=== PATIENT | male | born 1945 | race Two or more races ===

== ENCOUNTER 2019-11-19 18:25 | Inpatient (IN) | payer MEDICARE ==
[~2019-11-19] VITALS: Ht 177.8 cm; Wt 69.9 kg
[2019-11-19 21:26] VITALS: BP 116/62
--- NOTE | 2019-11-19 21:26 | NUR ---
RN OPEN NOTES RECEIVED PATIENT VIA GURNEY FROM [place]/ SPOKE TO [facility] FOR REPORT. PATIENT WAS ORIENTED TO ROOM. A/O X4. ON RA, NO SOB/ ACUTE RESPIRATORY DISTRESS NOTED. VITAL SIGNS: BP 121/75, HR 46, RESPIRATIONS 18, TEMP 97.6 O2 SATURATION 100% ON RA. BED IS IN LOWEST LOCKED POSITION WITH SIDE RAILS UP X3, SEMI FOWLERS. CALL LIGHT IS WITHIN REACH. WILL CONTINUE TO MONITOR.
[2019-11-19] MEDS ORDERED: IV NS 0.9% 1,000 ML IV PRN (22:18)
[2019-11-19] MEDS ORDERED: HYDROCODONE/APAP 5/325MG 1 EACH TABLET PO PRN (22:30)
[2019-11-19] MEDS ORDERED: MAG HYDROX/AL HYDROX/SIMETH 30 ML UDC PO PRN (22:30)
[2019-11-19] MEDS ORDERED: ACETAMINOPHEN 325 MG TABLET PO PRN (22:30)
[2019-11-19] MEDS ORDERED: MAGNESIUM HYDROXIDE 30 ML UDC PO PRN (22:30)
[2019-11-19] MEDS ORDERED: Z GUARD REMEDY 2 OZ OINT TP PRN (22:30)
[2019-11-19] MEDS ORDERED: ONDANSETRON HCL/PF 4 MG/2 ML VIAL IVP PRN (22:30)
[2019-11-19 22:57] LABS: BASOPHILS # (AUTO) 0.2 /CMM (0.0-0.2); BASOPHILS % (AUTO) 1.6 % (0.0-2.0); EOSINOPHILS % (AUTO) 2.3 % (0.0-6.0); HEMATOCRIT 37 % (39-51); HEMOGLOBIN 12.1 g/dL (13.5-17.5); LYMPHOCYTES # (AUTO) 1.4 /CMM (0.8-4.8); MEAN CORPUSCULAR HGB CONC 33 g/dl (31.0-36.0); MEAN CORPUSCULAR VOLUME 95 fL (80-96); MONOCYTES # (AUTO) 0.9 /CMM (0.1-1.30); MONOCYTES % (AUTO) 8.3 % (2.0-12.0); NEUTROPHILS # (AUTO) 8.7 /CMM (1.8-8.9); NEUTROPHILS % (AUTO) 75.8 % (43.0-81.0); PLATELET COUNT (AUTO) 133 /CMM (150-450); RED BLOOD CELL COUNT(AUTO) 3.91 MIL/uL (4.5-6.0); WHITE BLOOD COUNT (AUTO) 11.5 K/uL (4.3-11.0)
[2019-11-19 23:09] LABS: ALANINE AMINOTRANSFERASE 16 U/L (12-78); ALKALINE PHOSPHATASE 107 U/L (46-116); ASPARTATE AMINOTRANSFERASE 25 U/L (15-37); BILIRUBIN,DIRECT 0.2 mg/dL (0.0-0.2); BILIRUBIN,TOTAL 0.6 mg/dL (0.2-1.0); CALCIUM, SERUM 10.1 mg/dL (8.5-10.1); CARBON DIOXIDE 21 mmol/L (21-32); CHLORIDE 98 mmol/L (98-107); CREATININE 2.2 mg/dL (0.6-1.3); GLUCOSE 86 mg/dL (74-106); MAGNESIUM 2.2 mg/dL (1.8-2.4); PHOSPHORUS 4.1 mg/dL (2.5-4.9); POTASSIUM 4.6 mmol/L (3.5-5.1); SODIUM SERUM 128 mmol/L (136-145); UREA NITROGEN, BLOOD 70 mg/dL (7-18)
[2019-11-19 23:17] LABS: THYROID STIMULATING HORMONE 0.419 uIU/mL (0.358-3.74)
[2019-11-20] MEDS ORDERED: LOPERAMIDE HCL (2 MG CAP) 2 MG CAPSULE PO PRN
[2019-11-20] MEDS: IV NS 0.9% 1,000 ML IV SCH ×3 (00:39→20:26)
[2019-11-20] MEDS ORDERED: TOPI25TA49 PO (01:30)
[2019-11-20] MEDS ORDERED: OXYC5CAP18 PO (01:30)
--- NOTE | 2019-11-20 06:20 | NUR ---
RN CLOSE NOTES PATIENT IS LAYING IN BED. A/O X4. ON RA, SATURATING AT 100%, NO SOB/ ACUTE RESPIRATORY DISTRESS NOTED. COLOSTOMY INTACT 100ML OUTPUT. IV ON R AC #20G IS PATENT, RUNNING NS@ 100MLS/ HR. BED IS IN LOWEST LOCKED POSITION WITH SIDE RAILS UP X3, SEMI FOWLERS. CALL LIGHT IS WITHIN REACH. WILL ENDORSE TO AM NURSE.
[2019-11-20 07:13] LABS: BASOPHILS # (AUTO) 0.1 /CMM (0.0-0.2); BASOPHILS % (AUTO) 0.6 % (0.0-2.0); EOSINOPHILS % (AUTO) 2.7 % (0.0-6.0); HEMATOCRIT 33 % (39-51); HEMOGLOBIN 11.2 g/dL (13.5-17.5); LYMPHOCYTES # (AUTO) 1.9 /CMM (0.8-4.8); LYMPHOCYTES % (AUTO) 19.7 % (20.0-44.0); MEAN CORPUSCULAR HGB CONC 34 g/dl (31.0-36.0); MEAN CORPUSCULAR VOLUME 94 fL (80-96); MONOCYTES # (AUTO) 1.2 /CMM (0.1-1.30); MONOCYTES % (AUTO) 12.3 % (2.0-12.0); NEUTROPHILS # (AUTO) 6.1 /CMM (1.8-8.9); NEUTROPHILS % (AUTO) 64.7 % (43.0-81.0); PLATELET COUNT (AUTO) 131 /CMM (150-450); RED BLOOD CELL COUNT(AUTO) 3.54 MIL/uL (4.5-6.0); WHITE BLOOD COUNT (AUTO) 9.5 K/uL (4.3-11.0)
[2019-11-20 07:20] LABS: CALCIUM, SERUM 8.9 mg/dL (8.5-10.1); CARBON DIOXIDE 22 mmol/L (21-32); CHLORIDE 102 mmol/L (98-107); CREATININE 1.7 mg/dL (0.6-1.3); GLUCOSE 123 mg/dL (74-106); MAGNESIUM 2.1 mg/dL (1.8-2.4); PHOSPHORUS 3.1 mg/dL (2.5-4.9); POTASSIUM 3.8 mmol/L (3.5-5.1); SODIUM SERUM 132 mmol/L (136-145); UREA NITROGEN, BLOOD 65 mg/dL (7-18)
[2019-11-20 08:00] VITALS: BP 110/70
--- NOTE | 2019-11-20 08:07 | NUR ---
RN Opening Notes Patient is resting in bed semi fowlers with bed settings low and side rails up. IV RAC is intact. Breathing with no signs distress in room air. Call light is within reach.Continue to monitor.
--- NOTE | 2019-11-20 13:10 | NUR ---
RN MS Notes Patient is A/O x 4. Resting in bed c/o neck and lower abdomen pain 7/10 pain scale gave [place] 5mg. Reassess pain decrease to 3/10 pain scale and tolerated medication well. Vital signs WNL. Bed in low settings with side rails up for safety. Call light is within reach. Continue to monitor.
[2019-11-20 13:11] LABS: APPEARANCE,URINE CLEAR (CLEAR); BILIRUBIN,URINE NEGATIVE (NEGATIVE); BLOOD, URINE NEGATIVE Ery/uL (NEGATIVE); COLOR,URINE YELLOW (YELLOW); KETONES,URINE NEGATIVE (NEGATIVE); LEUKOCYTE ESTERASE ,URINE NEGATIVE (NEGATIVE); NITRITE, URINE NEGATIVE (NEGATIVE); PROTEIN,URINE NEGATIVE (NEGATIVE); UGLUCOSE NEGATIVE (NEGATIVE); UROBILINOGEN,URINE 0.2 EU/dL (0.2)
[2019-11-20 13:18] LABS: CREATININE, URINE 122.5 MG/DL (30.0-125.0); URINE TOTAL PROTEIN 49.2 mg/dL (0-11.9)
[2019-11-20 14:34] LABS: EOSINOPHIL,URINE None Seen
[2019-11-20 16:00] VITALS: BP 131/75
[2019-11-20] MEDS: oxyCODONE IR immediate release 5 MG PO PRN ×2 (16:35→22:59)
--- NOTE | 2019-11-20 16:42 | NUR ---
RN MS NOTES PT SEEN AND EXAMINED BY DR. SHAIKH, NEW ORDERS GIVEN, NOTED AND CARRIED OUT, PAIN MEDS GIVEN ORDERED.
[2019-11-20] MEDS ORDERED: FENTANYL TD PATCH (12 MCG/HR) 12 MCG/HR PATCH.TD72 TD SCH (17:00)
--- NOTE | 2019-11-20 18:16 | NUR ---
RN Closing Notes Patient is A/O x 4. Resting in bed with no signs of SOB in room air. Vitals are WNL c/o pain on the head, neck and abdomen. Pain medication was given and tolerated well. Stoma bag was emptied out 200ML colostomy intact. IV RAC #20G is patent. Bed is in low settings with side rails up for safety and call light is within reach. Will endorse to PM nurse.
--- NOTE | 2019-11-20 19:32 | NUR ---
MS RN NOTES PATIENT RECEIVED IN BED RESTING COMFORTABLY, ALERT AND ORIENTED X4, MALAGASY SPEAKING. PATIENT ON ROOM AIR WITH NO RESPIRATORY DISTRESS AT THIS TIME, WITH EVEN NON-LABORED BREATHING, AND NO SOB NOTED. SKIN WARM AND DRY TO TOUCH. COLOSTOMY BAG IN PLACE, WITH NO LEAKAGE AT THIS TIME. IV ACCESS INTACT AND PATENT ON RIGHT AC 20 GAUGE, IV FLUIDS INFUSING AT 100ml/hr. PROVIDED COMFORT MEASURES TO PATIENT. SAFETY PRECAUTIONS IMPLEMENTED WITH BED LOCKED, BED ALARM ON, BED IN THE LOWEST POSITION, BILATERAL SIDE RAILS UP, BED ALARM ON AND CALL LIGHT WITHIN EASY REACH OF THE PATIENT. WILL CONTINUE TO MONITOR PATIENT.
[2019-11-20 20:00] VITALS: BP 119/73
[2019-11-20 22:59] VITALS: BP 127/75
--- NOTE | 2019-11-20 22:59 | NUR ---
MS RN NOTES PATIENT COMPLAINING OF 10/10 GENERALIZED PAIN, PATIENT VERY IRRITABLE AND DEMANDING PAIN MEDICATION. PROVIDED COMFORT MEASURES TO PATIENT. ADMINISTERED PRN OXY IR 10mg PO ORDERED. VITAL SIGNS BLOOD PRESSURE 127/75 HEART RATE 53 SPO2 100% RESPIRATORY RATE 18. WILL CONTINUE TO MONITOR PATIENT.
[2019-11-21] MEDS: oxyCODONE IR immediate release 5 MG PO PRN ×4 (05:24→23:59)
--- NOTE | 2019-11-21 05:24 | NUR ---
MS RN NOTES PATIENT COMPLAINING OF 10/10 GENERALIZED PAIN, PATIENT IRRITABLE STATING HIS PAIN IS TOO MUCH AND DEMANDING PAIN MEDICATION. PROVIDED COMFORT MEASURES TO PATIENT. ADMINISTERED PRN OXY IR 10mg PO ORDERED. VITAL SIGNS BLOOD PRESSURE 140/77 HEART RATE 50 SPO2 100% RESPIRATORY RATE 20. WILL CONTINUE TO MONITOR PATIENT.
[2019-11-21] MEDS: IV NS 0.9% 1,000 ML IV SCH ×2 (05:49→16:31)
[2019-11-21 06:33] LABS: BASOPHILS # (AUTO) 0.1 /CMM (0.0-0.2); BASOPHILS % (AUTO) 0.6 % (0.0-2.0); EOSINOPHILS % (AUTO) 1.4 % (0.0-6.0); HEMATOCRIT 35 % (39-51); HEMOGLOBIN 11.6 g/dL (13.5-17.5); LYMPHOCYTES # (AUTO) 1.5 /CMM (0.8-4.8); LYMPHOCYTES % (AUTO) 12.7 % (20.0-44.0); MEAN CORPUSCULAR HGB CONC 33 g/dl (31.0-36.0); MEAN CORPUSCULAR VOLUME 94 fL (80-96); MONOCYTES # (AUTO) 1.2 /CMM (0.1-1.30); MONOCYTES % (AUTO) 10.5 % (2.0-12.0); NEUTROPHILS # (AUTO) 8.7 /CMM (1.8-8.9); NEUTROPHILS % (AUTO) 74.8 % (43.0-81.0); PLATELET COUNT (AUTO) 131 /CMM (150-450); RED BLOOD CELL COUNT(AUTO) 3.68 MIL/uL (4.5-6.0); WHITE BLOOD COUNT (AUTO) 11.6 K/uL (4.3-11.0)
--- NOTE | 2019-11-21 06:43 | NUR ---
MS RN NOTES PATIENT AWAKE IN BED AND WATCHING TV. ON ROOM AIR WITH NO SIGNS OF RESPIRATORY DISTRESS WITH EVEN NON-LABORED BREATHING. PATIENT SKIN KEPT WARM AND DRY. IV ACCESS INTACT AND PATENT ON RIGHT AC, INFUSING NORMAL SALINE AT 100ml/hr. PATIENT COLOSTOMY BAG CHANGED, NO DRAINAGE OR LEAKAGE PRESENT. PROVIDED COMFORT MEASURE PATIENT, PATIENT STILL COMPLAINING OF PAIN AFTER ADMINISTERING PRN MEDICATION. SAFETY PRECAUTIONS IMPLEMENTED WITH BED LOCKED, BED ALARM ON, BILATERAL SIDE RAILS UP, AND CALL LIGHT WITHIN EASY REACH OF THE PATIENT. WILL ENDORSE PLAN OF CARE TO UPCOMING DAYSHIFT NURSE.
[2019-11-21 08:00] VITALS: BP 137/76
--- NOTE | 2019-11-21 08:13 | NUR ---
MS RN Opening Notes Patient is resting in bed ate breakfast with no signs of distress. IV RAC #20G intact and patent running 0.9% NS @100ml/hr. Patient goal is to decrease pain and comfort measures will be provided. Bed is in low settings, bed alarm on with side rails up for safety. Call light is within reach. Continue to monitor.
[2019-11-21 08:31] LABS: CREATININE 1.1 mg/dL (0.6-1.3); POTASSIUM 3.8 mmol/L (3.5-5.1)
[2019-11-21 08:32] LABS: THYROID STIMULATING HORMONE 0.171 uIU/mL (0.358-3.74); URIC ACID 6.4 mg/dL (2.6-7.2)
[2019-11-21] MEDS: GABAPENTIN 100 MG CAPSULE PO SCH ×3 (09:01→16:36)
--- NOTE | 2019-11-21 09:01 | NUR ---
RN MS NOTES PT SEEN AND EXAMINED BY DR. SHAIKH, NEW ORDERS GIVEN, NOTED AND CARRIED OUT.
--- NOTE | 2019-11-21 09:50 | NUR ---
MS RN Note Patient was seen by Dr. Cardoza, plan of care discuss with patient verbalize understanding.
--- NOTE | 2019-11-21 12:31 | NUR ---
MS RN Notes Patient got clean linen and changed ostomy bag. Patient c/o pain, pain medication was given and scheduled medication was given. Continue to monitor.
[2019-11-21 16:00] VITALS: BP 135/80
--- NOTE | 2019-11-21 18:24 | NUR ---
MS RN Closing Notes Patient is resting in bed. Showing no signs of distress and no shortnedd of breath in room air. Patient ostomy bag was replaced. IV RAC is intact and patent infusing 0.9% Normal Saline at 100ml/hr. Scheduled medications were given. Complained of pain gave pain medication as needed. Bed is in low settings with side rails up for safety call light is within reach. Will endorse the plan of care to the life consultant nurse.
--- NOTE | 2019-11-21 19:30 | NUR ---
MSRN FULLY AWAKE, V/S STABLE. REQUESTED SNACKS PROVIDED. COLOSTOMY INTACT, VERBALIZES DISCOMFORTS ON HIS SCROTAL, SKIN APPEARS DRY, MOISTURIZER APPLIED, FELT BETTER. PAIN MGT REVIEWED WITH PATIENT, WAS ALREADY SEEN BY PAIN MGT MD. INFORMED HAS NEW MED TO TAKE TONIGHT. ALL NEEDS MADE TO CONTINUE
[2019-11-21 20:48] VITALS: BP 127/73
[2019-11-21] MEDS ORDERED: DESIPRAMINE HCL 10 MG TABLET PO SCH (22:00)
--- NOTE | 2019-11-21 22:05 | NUR ---
MSRN DUE MED FOR NERVE PAIN DECLINED, STATED AFRAID WILL AFFECT HIS APPETITE. WOULD LIKE TO SPEAK TO MD REGARDING NEW MED. SSTATED HE HAD SURGERIES IN THE PASS AND HAS OWN SET OF PAIN MEDS. MED HELD FOR NOW PT REQUESTED. WANTED OXY TO BE GIVEN EARLY, REMINDED TIME FRAME. STATED WOULD RATHER WAIT FOR NEXT VALENZUELA OF OXY RATHER THAN TAKING NEW NERVE PAIN MED. HAS MULTIPLE NEEDS, KEPT COMFORTABLE.
--- NOTE | 2019-11-22 01:39 | NUR ---
LEXIE ASLEEP OF IS TIME CLOSELY WATCHED
[2019-11-22] MEDS: oxyCODONE IR immediate release 5 MG PO PRN ×2 (06:05→12:22)
[2019-11-22 06:43] LABS: BASOPHILS # (AUTO) 0.1 /CMM (0.0-0.2); BASOPHILS % (AUTO) 0.9 % (0.0-2.0); EOSINOPHILS % (AUTO) 3.2 % (0.0-6.0); HEMATOCRIT 34 % (39-51); HEMOGLOBIN 11.3 g/dL (13.5-17.5); LYMPHOCYTES # (AUTO) 1.8 /CMM (0.8-4.8); LYMPHOCYTES % (AUTO) 15.9 % (20.0-44.0); MEAN CORPUSCULAR HGB CONC 33 g/dl (31.0-36.0); MEAN CORPUSCULAR VOLUME 95 fL (80-96); MONOCYTES # (AUTO) 1.3 /CMM (0.1-1.30); MONOCYTES % (AUTO) 11.4 % (2.0-12.0); NEUTROPHILS # (AUTO) 7.9 /CMM (1.8-8.9); NEUTROPHILS % (AUTO) 68.6 % (43.0-81.0); PLATELET COUNT (AUTO) 139 /CMM (150-450); WHITE BLOOD COUNT (AUTO) 11.6 K/uL (4.3-11.0)
[2019-11-22 06:53] LABS: CALCIUM, SERUM 8.6 mg/dL (8.5-10.1); MAGNESIUM 1.5 mg/dL (1.8-2.4); PHOSPHORUS 2.2 mg/dL (2.5-4.9)
--- NOTE | 2019-11-22 07:00 | NUR ---
MSRN AM LABS DRAWN, ALL NEEDS MADE. ENDORSED TO INCOMING RN.
[2019-11-22 07:10] LABS: PTH, INTACT 46 pg/mL (15-65)
[2019-11-22] MEDS: IV NS 0.9% 1,000 ML IV SCH ×2 (07:19→12:30)
[2019-11-22 08:00] VITALS: BP 140/74
--- NOTE | 2019-11-22 08:00 | NUR ---
RN MS NOTES. PT FULLY AWAKE, V/S STABLE. COLOSTOMY INTACT, ABLE TO VERBALIZED NEEDS CHILEAN SPEAKING , SKIN APPEARS DRY, MOISTURIZER APPLIED, FELT BETTER. PAIN MGT REVIEWED WITH PATIENT, WAS ALREADY SEEN BY PAIN MGT MD. INFORMED HAS NEW PAIN MED ,PT REFUSED STATED "I DO NOT WANT MORE MEDICATION I LOOSE MY APPETITE. ALL NEEDS ATTENDED
[2019-11-22] MEDS: GABAPENTIN 100 MG CAPSULE PO SCH ×2 (08:28→12:21)
[2019-11-22] MEDS: Magnesium 1GM/D5W 100ML PREMIX 100 ML IV SCH ×2 (11:27→11:30)
[2019-11-22] MEDS ORDERED: K PHOS NEUTRAL 250 MG TABLET PO ONE (11:30)
[2019-11-22] MEDS ORDERED: DESI10TA PO (12:55)
[2019-11-22] MEDS ORDERED: FENT1PAT2 TD (12:55)
--- NOTE | 2019-11-22 15:15 | NUR ---
MS RN NOTES PATIENT DISCHARGED TO SNF. PATENT IN STABLE CONDITION. DISCHARGE INSTRUCTIONS PROVIDED TO PATIENT. REPORT GIVEN TO MARTI RN AT SNF. ALL BELONGINGS ACCOUNTED FOR. MD AWARE OF ALL ABNORMAL LABS AND TESTS. DISCHARGE PROTOCOL FOLLOWED. VS WNL. PATIENT DISCHARGED WITH EMT VIA RNEY.
[2019-11-22 16:10] LABS: *SPE A/G RATIO 0.6 (0.7-1.7); *SPE ALBUMIN 2.5 g/dL (2.9-4.4); *SPE ALPHA-1-GLOBULIN 0.4 g/dL (0.0-0.4); *SPE ALPHA-2-GLOBULIN 0.8 g/dL (0.4-1.0); *SPE BETA GLOBULIN 1.3 g/dL (0.7-1.3); *SPE M-SPIKE Not Observed g/dL (Not Observed); *SPEGAMMA GLOBULIN 1.6 g/dL (0.4-1.8)
== END 2019-11-22 15:15 | DRG 682 ==
LOC: MED 21:21
PROVIDERS: ADMIT Internal Medicine; ATTEND Student in an Organized Health Care Education/Training Program
DX: N17.0 Acute kidney failure with tubular necrosis (principal); E43 Unspecified severe protein-calorie malnutrition; E87.1 Hypo-osmolality and hyponatremia; N18.9 Chronic kidney disease, unspecified; E86.0 Dehydration; F32.9 Major depressive disorder, single episode, unspecified; G89.4 Chronic pain syndrome; R62.7 Adult failure to thrive; Z93.3 Colostomy status; Z90.49 Acquired absence of other specified parts of digestive tract; Z85.038 Personal history of other malignant neoplasm of large intestine; K52.9 Noninfective gastroenteritis and colitis, unspecified; E86.1 Hypovolemia; Z79.891 Long term (current) use of opiate analgesic; Z85.528 Personal history of other malignant neoplasm of kidney; Z90.5 Acquired absence of kidney; G89.3 Neoplasm related pain (acute) (chronic); E88.09 Other disorders of plasma-protein metabolism, not elsewhere classified; M62.50 Muscle wasting and atrophy, not elsewhere classified, unspecified site; Z68.22 Body mass index [BMI] 22.0-22.9, adult
CPT/HCPCS: 36415; 76770-TC; 80048-TC; 80076-TC; 81000-TC; 82550-TC; 82570-TC; 83735-TC; 83935-TC; 83970; 84100-TC; 84155; 84155-TC; 84165; 84300-TC; 84443-TC; 84550-TC; 85025-TC; 97110-TC; 97116-TC; 97530-TC; A6403; G0378; J3475; J7030